=== PATIENT | female | born 1990 | race Caucasian/White ===

== ENCOUNTER 2020-07-26 08:01 | Emergency (ER) | payer BC, SELFPAY ==
[2020-07-26 08:14] VITALS: BP 130/86; PULSE 86; RESP 16; TEMP 36.4; O2SAT 97
--- NOTE | 2020-07-26 08:15 | ED.GENADULT ---
HPI - General Adult General Chief complaint: Extremity Injury, Upper Stated complaint: Trouble breathing Time Seen by Provider: 07/26/20 08:15 Source: patient Mode of arrival: ambulatory Limitations: no limitations History of Present Illness HPI narrative: 29-year-old female patient presents to the [facility] with complaints of muscle pain to the mid back and chest that started last night. Patient states that she would go and pull her weighted blanket up over her felt a little twinge of the back. Patient states that the mid back pain in the chest wall pain got worse last night. Patient states it does hurt when she takes a deep breath. Denies any fevers, coughing or shortness of breath. Denies any nausea, vomiting or diarrhea. Patient states she has used a heating pad but denies taking anything for her pain. Patient is requesting either a shot or muscle relaxants. Patient denies any numbness or tingling down the legs. Denies any loss of bowel or bladder control. Related Data Home Medications Medication Instructions Recorded Confirmed norethindrone 1 mg-ethinyl 1 tablet PO DAILY 07/19/19 07/26/20 estradiol 10 mcg (24)-iron 10 mcg(2) tablet lamotrigine 100 mg PO DAILY 07/26/20 07/26/20 sertraline 100 mg PO DAILY 07/26/20 07/26/20 Allergies Allergy/AdvReac Type Severity Reaction Status Date / Time No Known Allergies Allergy Verified 07/26/20 08:20 Review of Systems Review of Systems: Narrative: CONSTITUTIONAL: Denies fever, chills, or sweats. EYES: Denies visual changes, redness, or discharge. ENT: Denies rhinorrhea, congestion, sore throat, or otalgia. CARDIOVASCULAR: Denies chest pain, palpitations, or edema. RESPIRATORY: Denies cough or dyspnea. Positive chest wall pain GASTROINTESTINAL: Denies abdominal pain, nausea, vomiting, or diarrhea. GENITOURINARY: Denies dysuria or hematuria. SKIN: Denies rash or itching. MUSCULOSKELETAL: Positive middle back pain, denies joint pain, or myalgia. NEUROLOGIC: Denies headache, numbness, or weakness. PSYCHIATRIC: Denies anxiety or depression. [facility] Past Medical History Medical History (Updated 07/26/20 @ 08:29 by JANIE Cohen) Closed right ankle fracture Surgical History Surgical History Hx of breast implants, bilateral Family History Family History Grandparent Carcinoma of colon Family history of lupus erythematosus Social History Social History Smoking status: Light tobacco smoker Second hand tobacco smoke exposure: No Smoking end date: 08/15/08 Alcohol intake: current Gender identity (if verbalized by the patient): Female Comments At the time of my signature I agree with nursing past medical history, surgical, social, and family history. There is no relevant family history pertinent to the presenting complaint. Exam Narrative: Exam Narrative: GENERAL: Well-appearing, well-nourished, and in no acute distress. HEAD: Normocephalic, atraumatic. EYES: PERRLA and EOMI. ENT: Nares clear, no rhinorrhea or epistaxis. Mucous membranes moist. NECK: Supple. No lymphadenopathy CHEST: Clear to auscultation. No respiratory distress.Chest wall pain bilateral under breasts, espically with inspiration. HEART: Regular rate and rhythm. No murmur heard. Normal peripheral pulses. ABDOMEN: Soft, nontender, nondistended, normal active bowel sounds. EXTREMITIES: Normal range of motion. No edema. BACK: Patient is able to ambulated without assistance. Pt is seated on the stretcher in no obvouis distress. No surface trauma noted. muscle tenderness to Palpation of the thoracic back area on bilateral side of spines. No spasm or mass. No step-offs or deformity noted to the cervical, thoracic or lumbar spine to firm Palpation at the midline. No CVA tenderness to percussion. No saddle anesthesia. ROM: abl
== END 2020-07-26 08:35 | disposition home or self-care (01) ==
PROVIDERS: Emergency Provider Nurse Practitioner Family
DX: S29.012A Strain of muscle and tendon of back wall of thorax, initial encounter (principal); X50.9XXA Other and unspecified overexertion or strenuous movements or postures, initial encounter; F41.9 Anxiety disorder, unspecified; F32.9 Major depressive disorder, single episode, unspecified
CPT/HCPCS: 99213; G0463

== ENCOUNTER 2021-07-15 08:35 | Emergency (ER) | payer BC, SELFPAY ==
[2021-07-15 08:46] VITALS: BP 127/80; PULSE 97; RESP 16; TEMP 37.6; O2SAT 98
--- NOTE | 2021-07-15 09:17 | ED.EAR ---
HPI - Ear Problem General Chief complaint: Ear Stated complaint: Ear Pain Time Seen by Provider: 07/15/21 09:18 Source: patient, RN notes reviewed and old records reviewed Mode of arrival: ambulatory Limitations: no limitations History of Present Illness HPI Narrative: 30-year-old female who presents [facility] with complaints of 2-week duration of sinus congestion, nasal drainage,some sore throat which has resolved, right ear pain with echoing sensation of ear. Patient has juan manuel taking Sudafed and Tylenol for hr symptoms. Patient has not had flu or COVID vaccinations. Patient denies any chills or sweats denies any shortness of breath or any body aches. MD Complaint: ear pain Location: right ear Severity: moderate Related Data Home Medications Medication Instructions Recorded Confirmed lamotrigine 150 mg PO DAILY 07/26/20 07/15/21 sertraline 50 mg PO DAILY 07/15/21 07/15/21 sertraline 100 mg PO DAILY 07/15/21 07/15/21 Allergies Allergy/AdvReac Type Severity Reaction Status Date / Time No Known Allergies Allergy Verified 01/26/21 15:39 Review of Systems Review of Systems: CONSTITUTIONAL: Denies fever, chills, or sweats. EYES: Denies visual changes, redness, or discharge. ENT: Positive for rhinorrhea, congestion, sore throat,right otalgia. CARDIOVASCULAR: Denies chest pain, palpitations, or edema. RESPIRATORY: Denies cough or dyspnea. GASTROINTESTINAL: Denies abdominal pain, nausea, vomiting, or diarrhea. GENITOURINARY: Denies dysuria or hematuria. SKIN: Denies rash or itching. MUSCULOSKELETAL: Denies back pain, joint pain, or myalgia. NEUROLOGIC: Denies headache, numbness, or weakness. PSYCHIATRIC:Positive for history of anxiety or depression. All systems reviewed & are unremarkable except as noted in HPI and below PMFSH Past Medical History Medical History (Updated 07/16/21 @ 09:39 by Mariposa Sivleira NP) Anxiety and depression Closed right ankle fracture Surgical History Surgical History Hx of breast implants, bilateral Family History Family History Grandparent Carcinoma of colon Family history of lupus erythematosus Social History Social History (Updated 07/16/21 @ 09:37 by Mariposa Silveira NP) Smoking status: Former smoker Second hand tobacco smoke exposure: No Smoking end date: 08/15/08 Alcohol intake: current Gender identity (if verbalized by the patient): Female Comments At time of signature, agree with nursing past medical, surgical, social and family history. There is no relevant family history pertinent to the presenting complaint Exam Narrative: GENERAL: Well-appearing, well-nourished, and in no acute distress. HEAD: Normocephalic, atraumatic. EYES: PERRLA and EOMI. ENT: Nares rd with clear rhinorrhea no epistaxis. Mucous membranes moist.Right TM red with dull light reflex, left TM normal with good light reflex, throat pink with no lesions or exudates, no tonsil enlargement, some post nasal drainage noted. NECK: Supple.no lymphadenopathy CHEST: Clear to auscultation. No respiratory distress.No cough or any dyspnea noted SAO2 98% on room air HEART: Regular rate and rhythm. No murmur heard. Normal peripheral pulses. ABDOMEN: Soft, nontender, nondistended, normal active bowel sounds. EXTREMITIES: Normal range of motion. No edema. SKIN: Warm, dry, no rash. NEURO: No focal deficits. Alert and oriented x3. Course Vital Signs Vital signs: Vital Signs Temperature 37.6 C 07/15/21 08:46 Pulse Rate 97 07/15/21 08:46 Respiratory Rate 16 07/15/21 08:46 Blood Pressure 127/80 07/15/21 08:46 Pulse Oximetry 98 07/15/21 08:46 Temperature 37.6 C 07/15/21 08:46 Pulse Rate 97 07/15/21 08:46 Respiratory Rate 16 07/15/21 08:46 Blood Pressure 127/80 07/15/21 08:46 Pulse Oximetry 98 07/15/21 08:46 Medical Decision Making Differential Diagn
== END 2021-07-15 09:32 | disposition home or self-care (01) ==
PROVIDERS: Emergency Provider Registered Nurse
DX: H65.01 Acute serous otitis media, right ear (principal); Z87.891 Personal history of nicotine dependence
CPT/HCPCS: 99213; G0463

== ENCOUNTER 2022-11-10 00:27 | Day surgery (SDC) | payer BC, SELFPAY ==
--- NOTE | 2022-11-01 09:11 | SUR.PREOP ---
Report to the Outpatient Waiting Room, entrance under the green pavilion located off [facility], at time 0830 on date 11/10/22. Planned Procedure Time: 1030. Time changes happen often and if your time is changed the preop area will call you the afternoon before. - You and your visitor will be asked to self-screen and do not enter if you have any COVID symptoms. - Only one visitor is requested with a max of two and NO children visitors are allowed at this time. - The patient visitor may be requested to leave or wait in car when not with patient due to distancing restrictions. - A mask is optional within the hospital at this time. Patients may have clear liquids (water, carbonated beverages, clear teas, apple juice) until 3 hours prior to surgery with a maximum of 20 ounces. - No food from midnight until time of surgery - Infants may have breast milk until 4 hours before surgery, formula 6 hours prior to surgery. - Children will be allowed to drink immediately following surgery. If applicable, please bring a bottle or sippy cup to assist with drinking. Juice, water, soda, and popsicles are readily available. For infants on formula, please bring formula the day of surgery. Pacifiers are allowed. Take the following medications with a SIP of water the morning of surgery: lamotrigine, sertraline DO NOT STOP ANY OF YOUR OTHER PRESCRIPTION MEDICATIONS PRIOR TO SURGERY ?EXCEPT THE FOLLOWING Medications to discontinue per physician n/a Date to take last dose n/a Please no make-up, nail spanish, hairspray, perfume, deodorant, or body powder the day of surgery. No jewelry (including any body piercings) or valuables the day of surgery, leave them at home. Please take a shower or bath the night before, or the morning of, surgery with an antibacterial soap. Wear comfortable, loose fitting clothing. Children are encouraged to wear pajamas. - Jewelry must be removed prior to entering the operating room. Rings and piercings that are not removed may be cut off. - The hospital will not accept responsibility for valuables. - Please leave all valuables, including medications, at home the day of surgery. If you are going home after surgery, a licensed driver education road instructor must drive you home. - NO public transportation without another adult if you receive anesthesia. - We recommend that an adult stay with you for 24 hours following discharge. - We also recommend that you do not drive, make important decision, drink alcoholic beverages, or take any drugs that were not prescribed by your health care provider for at least 24 hours after your discharge time. For Pediatric surgeries, we recommend two adults accompany the child home. Follow any additional instructions given to you from your surgeon. If you or anyone in your household have experienced Covid symptoms in the past week, please notify your surgeon or the nurse liaison at the phone number below for possible testing. Telephone instructions given to QUIRINO VERA and asked if any additional questions and then verbalized understanding. Patient advised to call surgeon office or pre surgery nurse liaison [phone] if any additional questions.
[2022-11-01 09:14] VITALS: BMI 26.6
--- NOTE | 2022-11-10 03:19 | PM.IMHP ---
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 She has been recommended for LEEP. Review of Systems Review of Systems: All systems reviewed & are unremarkable except as noted in HPI and below Constitutional: Constitutional: Reports no additional constitutional complaints Eyes: Eyes: Reports no additional eye complaints Cardiovascular: Cardiovascular: Reports no additional cardiovascular complaints Respiratory: Respiratory: Reports no additional respiratory complaints Gastrointestinal: Gastrointestinal: Reports no additional gastrointestinal complaints Genitourinary: Genitourinary: Reports no additional female genitourinary complaints and Reports as per HPI Integumentary/Breasts: Skin/Breast: Reports system reviewed and no additional complaints, except as docu Neurologic: Reports system reviewed and no additional complaints, except as documented Psychiatric: Psychiatric: Reports no additional psychiatric complaints Hematologic/Lymphatic: Hematologic/Lymphatic: Reports no additional hematologic/lymphatic complaints PMFSH Past Medical History Medical History Anxiety and depression Cervical high risk HPV (human papillomavirus) test positive Closed right ankle fracture LGSIL on Pap smear of cervix Surgical History Surgical History Hx of breast implants, bilateral Family History Family History Grandparent Carcinoma of colon Family history of lupus erythematosus Social History Social History Years smoked: 15 Smoking status: Former smoker Second hand tobacco smoke exposure: No Smoking end date: 08/04/23 Alcohol intake: current Substance use: never Substance use type: does not use Last use: 08/04/23 Lack of Transportation: No Lack of Food: Never True Current Housing: I Have Housing Concerned About Future Housing: No Difficulty Paying Gas/Electric Bills: No Difficulty Paying for Meds: No Currently Unemployed: No Education: High School Diploma/GED Difficulty w/ Childcare or Family Care: No Living arrangements: with family Gender identity (if verbalized by the patient): Female Spiritual care concerns: No Meds Home Medications and Allergies Home Medications Medication Instructions Recorded Confirmed Type lamotrigine 100 mg tablet 150 mg PO DAILY 07/26/20 11/01/22 History sertraline 100 mg tablet 100 mg PO DAILY 07/15/21 11/01/22 History norethindrone 1 mg-ethinyl 1 tablet PO DAILY #84 tabs 10/25/22 11/01/22 Rx estradiol 20 mcg (21)-iron 75 mg (7) tablet (Loestrin Fe 09/03 (28-Day)) Allergies Allergy/AdvReac Type Severity Reaction Status Date / Time No Known Allergies Allergy Verified 11/01/22 08:46 Exam Const: General: comfortable and no acute distress Orientation/consciousness: oriented to person, oriented to place and oriented to time Eyes: General: appearance normal, both eyes and all related structures Neck: Neck: normal visual inspection Resp: Effort & Inspection: normal respiratory effort Auscultation: clear to auscultation bilaterally Cardio: Rate: regular rate Rhythm: regular rhythm GI: Inspection: normal to inspection GI Palp: No abdominal tenderness and Yes No hepatosplenomegaly present : External Female Exam: normal external appearance Speculum Exam - Vagina: normal appearance of the vagina Speculum Exam - Cervix: normal appearance of the cervix Bimanual exam- vagina & uterus: normal bimanual exam, uterine mobility normal, uterine shape normal and non-tender Bimanual Exam- Adnexa, other: no masses and No adnexal tenderness Skin: General skin exam: normal colo
[2022-11-10] MEDS: ACETAMINOPHEN 500 MG TABLET 1000 MG PO (06:13)
[2022-11-10] MEDS: LACTATED RINGERS 1,000 ML 30 ML IV CONT (06:21)
[2022-11-10 06:25] VITALS: BP 114/74; PULSE 77; RESP 16; TEMP 37; O2SAT 98
--- NOTE | 2022-11-10 06:54 | WPDANESEPPF ---
Anes - Initial Pre Proc Eval Procedure: Operation Date: 11/10/22 07:30 Proposed Procedures p Loop Electrical Excision Procedure - Rei Soliz MD Date/Time: 11/10/22 06:54 Surgeon: Rei Soliz MD Pre Op Diagnosis: LSIL, positive hpv Patient Data Age: 32 Gender: F Height: 1.65 m Weight: 74.9 kg Last Vital Signs Temp 37.0 C 11/10/22 06:25 Pulse 77 11/10/22 06:25 Resp 16 11/10/22 06:25 BP 114/74 11/10/22 06:25 Pulse Ox 98 11/10/22 06:25 O2 Del Method Room Air 11/10/22 06:25 Allergies Allergy/AdvReac Type Severity Reaction Status Date / Time No Known Allergies Allergy Verified 11/10/22 06:08 Home Medications Medication Instructions Recorded Confirmed Type lamotrigine 100 mg tablet 150 mg PO DAILY 07/26/20 11/01/22 History sertraline 100 mg tablet 100 mg PO DAILY 07/15/21 11/01/22 History norethindrone 1 mg-ethinyl 1 tablet PO DAILY #84 tabs 10/25/22 11/01/22 Rx estradiol 20 mcg (21)-iron 75 mg (7) tablet (Loestrin Fe 09/03 (28-Day)) Patient hx anesthesia problems: none Family hx anesthesia problems: none Results Review: All pre-operative results and documents have been reviewed as part of the pre-operative evaluation. PMFSH Past Medical History Medical History Anxiety and depression Cervical high risk HPV (human papillomavirus) test positive Closed right ankle fracture LGSIL on Pap smear of cervix Surgical History Surgical History Hx of breast implants, bilateral Family History Family History Grandparent Carcinoma of colon Family history of lupus erythematosus Social History Social History Years smoked: 15 Smoking status: Former smoker Second hand tobacco smoke exposure: No Smoking end date: 08/04/23 Alcohol intake: current Substance use: never Substance use type: does not use Last use: 08/04/23 Lack of Transportation: No Lack of Food: Never True Current Housing: I Have Housing Concerned About Future Housing: No Difficulty Paying Gas/Electric Bills: No Difficulty Paying for Meds: No Currently Unemployed: No Education: High School Diploma/GED Difficulty w/ Childcare or Family Care: No Living arrangements: with family Gender identity (if verbalized by the patient): Female Spiritual care concerns: No Anes - Eval Final PreProcedure Day of Procedure 11/10/22 06:54 Patient weight: overweight Heart: regular rate and rhythm Lungs: clear to auscultation Airway: Mallampati scale class II Neurological: alert and oriented Last oral intake: >/= 8 hours ASA classification: II Emergent: no Anesthetic plan: proceed Anesthesia type and monitoring: general GIVS and standard monitoring Results Review: All pre-operative results and documents have been reviewed as part of the pre-operative evaluation. Informed Consent: The patient's anesthetic plan and its attendant risks and benefits were discussed with the patient/family/POA. Questions were solicited and answers provided to the satisfaction of the patient/family/POA.
--- NOTE | 2022-11-10 07:22 | WPDHPUPDATE1 ---
History and Physical Update Update Date/Time: 11/10/22 07:22 History and Physical has been reviewed, including an updated exam of the patient. There are NO changes in the patient's condition. Risks, benefits, and alternatives have been discussed and questions answered. Patient agrees to proceed with procedure.
[2022-11-10] MEDS: ceFAZolin 2 GM/D5W 50 ML 2 GM/50 ML BAG IVPB (07:29)
[2022-11-10] MEDS: IODINE/POTASSIUM IODIDE 8 ML SOLUTION TOPICAL (07:42)
[2022-11-10] MEDS: LIDO 1%/EPINEPHRINE 1:100,000 50 ML VIAL INFILTRATE (07:42)
[2022-11-10 07:53] VITALS: BP 130/68; PULSE 73; RESP 16; O2SAT 97
--- NOTE | 2022-11-10 08:03 | W.PM.PROC2 ---
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 Description of Procedure The patient was taken to the OR where adequate IV sedation was administered. She was then prepped and draped in the usual sterile fashion and placed in the dorsal lithotomy position. A Graves speculum was placed in the vagina. Lugol?s solution was painted along the entire cervix and vaginal wall. Areas of non-uptake were noted to be around the entire squamocolumnar junction more from 11-2. 10 cc of lidocaine with epinephrine was injected at surgical site. The large loop electrode was used to remove the anterior or top portion of the cervix and a separate posterior specimen which included all of the hypopigmented area was excised and sent to pathology. The smallest loop electrode was used to obtain a top hat for excision of the endocervix. The bed of the excised cervical tissue along the cervix was cauterized using the roller ball. Hemostasis was noted. All instruments were removed from vagina at this point. The patient tolerated the procedure well without complication and was taken to the recovery room in stable condition. Estimated Blood Loss 5 Drains No Packing No Pathology Yes (ectocervix LEEP- ant and post segment, post cut in center, 2. Endocervical LEEP) Complications No immediate complications Condition Stable Disposition Same day [facility] Billing Surgery - Charge Forward: Surgery Billing
[2022-11-10 08:20] VITALS: BP 111/75; PULSE 69; RESP 14; O2SAT 99
[2022-11-10 08:50] VITALS: BP 113/80; PULSE 68; RESP 14
== END 2022-11-10 08:55 | disposition home or self-care (01) ==
PROVIDERS: Visit Provider Obstetrics & Gynecology
PROC: 0UBC7ZZ Excision of Cervix, Via Natural or Artificial Opening (ICD-10-PCS; CPT 57522; principal; 2022-11-10 07:30)
DX: N87.0 Mild cervical dysplasia (principal); F41.8 Other specified anxiety disorders; R87.820 Cervical low risk human papillomavirus (HPV) DNA test positive; Z87.891 Personal history of nicotine dependence
CPT/HCPCS: 57522; 88307; A9270; J0690; J2250; J2405; J2704; J3010; J7120